=== PATIENT | female | born 1950 | race Caucasian/White ===

== ENCOUNTER 2021-01-12 11:13 | Emergency (ER) | payer OTHER, BC ==
[2021-01-12 11:20] VITALS: TEMP 98; BMI 28.3
[2021-01-12] MEDS ORDERED: KETOROLAC TROMETHAMINE 15 MG/ML VIAL IVPUSH ONE (12:26)
[2021-01-12] MEDS ORDERED: SODIUM CHLORIDE 1,000 ML IV STA (12:29)
[2021-01-12] MEDS ORDERED: KETOROLAC TROMETHAMINE 15 MG/ML VIAL ONE (12:33)
[2021-01-12 13:23] LABS: BASO % 0.7 % (0-2.0); HEMATOCRIT 48.1 % (32.4-45.2); HEMOGLOBIN 16.1 GM/dL (10.7-15.3); LYMPH % 21.8 % (8-40); MCH 31.5 pg (25.7-33.7); MCHC 33.5 g/dl (32.0-36.0); MEAN CELL VOLUME 93.9 fl (80-96); MEAN PLT VOLUME 10.2 fl (7.5-11.1); MONO % 10.3 % (3.8-10.2); NEUT % 65.2 % (42.8-82.8); PLATELET COUNT 225 10^3/uL (134-434); RBC 5.12 M/mm3 (3.60-5.2); WHITE BLOOD COUNT 6.6 K/mm3 (4.0-10.0)
[2021-01-12 13:25] LABS: PH,URINE 8.5 (5.0-8.0); URINE APPEARANCE CLEAR; URINE BILIRUBIN NEGATIVE (NEGATIVE); URINE COLOR YELLOW; URINE GLUCOSE (UA) NEGATIVE (NEGATIVE); URINE KETONE NEGATIVE (NEGATIVE); URINE LEUK ESTERASE NEGATIVE (NEGATIVE); URINE NITRITE NEGATIVE (NEGATIVE); URINE PROTEIN TRACE (NEGATIVE)
[2021-01-12 13:55] LABS: ALBUMIN 3.9 g/dl (3.4-5.0); CALCIUM 9.8 mg/dL (8.5-10.1)
[2021-01-12 13:59] LABS: CREATININE 0.9 mg/dL (0.55-1.3)
[2021-01-12 14:00] LABS: TOT PROT 7.9 g/dl (6.4-8.2)
[2021-01-12 14:36] LABS: BILIRUBIN,TOTAL 0.6 mg/dL (0.2-1); BLOOD UREA NITROGEN 17.9 mg/dL (7-18)
[2021-01-12 15:38] LABS: ALBUMIN 3.8 g/dl (3.4-5.0); BLOOD UREA NITROGEN 16.3 mg/dL (7-18); CALCIUM 9.4 mg/dL (8.5-10.1)
[2021-01-12 15:42] LABS: CREATININE 0.7 mg/dL (0.55-1.3)
[2021-01-12 15:43] LABS: BILIRUBIN,TOTAL 0.6 mg/dL (0.2-1); TOT PROT 7.3 g/dl (6.4-8.2)
[2021-01-12 15:57] VITALS: BP 112/79; PULSE 66
== END 2021-01-12 15:55 | disposition home or self-care (01) ==
LOC: JER 11:13
PROC: 3E033GC Introduction of Other Therapeutic Substance into Peripheral Vein, Percutaneous Approach (ICD-10-PCS; principal; 2021-01-12)
DX: R10.9 Unspecified abdominal pain (principal); M79.10 Myalgia, unspecified site
CPT/HCPCS: 36415; 74176-TC; 80053; 81003; 83690; 85025; 87086; 87186; 99285-25; C9803; U0003; U0005